=== PATIENT | male | born 1955 | race Two or more races ===

== ENCOUNTER 2022-01-15 09:24 | Emergency (ER) | payer MEDICARE, OTHER ==
[~2022-01-15] VITALS: Ht 180.3 cm; Wt 99.8 kg
[2022-01-15 09:40] VITALS: BP 123/91
--- NOTE | 2022-01-15 09:40 | NUR ---
BIBS C/O LEFT KNEE PAIN P/S 07/29 X2DAYS, DENIES TRAUMA. AWAITING MED EVAL.
[2022-01-15] MEDS ORDERED: NAPR-1192 PO (10:46)
--- NOTE | 2022-01-15 11:03 | NUR ---
Patient given written and verbal discharge instructions. Patient verbalizes understanding of instructions. Patient is ambulatory with steady gait. Refuses offer of intermediate placement. Patient given list of available shelters in surrounding area.
== END 2022-01-15 11:04 | disposition home or self-care (01) ==
LOC: ER 09:45
DX: S83.8X2A Sprain of other specified parts of left knee, initial encounter (principal); J45.909 Unspecified asthma, uncomplicated; M19.90 Unspecified osteoarthritis, unspecified site; Z88.0 Allergy status to penicillin; X50.1XXA Overexertion from prolonged static or awkward postures, initial encounter; Y93.89 Activity, other specified; Y92.89 Other specified places as the place of occurrence of the external cause; Y99.8 Other external cause status
CPT/HCPCS: 73564-TC

== ENCOUNTER 2022-01-24 09:34 | Emergency (ER) | payer MEDICARE, OTHER ==
[~2022-01-24] VITALS: Ht 180.3 cm; Wt 99.8 kg
[~2022-01-24 09:34] MED LIST: NAPR-1192 PO
[2022-01-24 09:36] VITALS: BP 131/93
--- NOTE | 2022-01-24 09:37 | NUR ---
BIBS W/ C/O EYE IRRITATION AFTER USING AEROSOL PAINT WITHOUT GOGGLES YESTERDAY; PT STATES HE TRIED USING OTC DROPS AND HAS MINIMAL RELIEF. TO ER BED 9.
[2022-01-24] MEDS ORDERED: FLUORESCEIN SODIUM OPHTH 1 EA STRIP ONE (09:42)
--- NOTE | 2022-01-24 09:50 | NUR ---
DR CERNA AT BEDSIDE FOR EVAL
[2022-01-24] MEDS ORDERED: GENT5DRO4 EACHEYE (09:53)
--- NOTE | 2022-01-24 09:57 | NUR ---
Patient discharged to home in stable condition. Written and verbal after care instructions given. Patient verbalizes understanding of instruction.
[2022-01-24] MEDS ORDERED: TETRACAINE HCL 0.5% OPHTALMIC 15 ML BOTTLE OP ONE (10:00)
[2022-01-24] MEDS ORDERED: FLUORESCEIN SODIUM OPHTH 1 EA STRIP OP ONE (10:00)
== END 2022-01-24 09:58 | disposition home or self-care (01) ==
LOC: ER 09:39
DX: H10.213 Acute toxic conjunctivitis, bilateral (principal); J45.909 Unspecified asthma, uncomplicated; M19.90 Unspecified osteoarthritis, unspecified site; Z88.0 Allergy status to penicillin

== ENCOUNTER 2022-09-28 03:40 | Emergency (ER) | payer MEDICARE, OTHER ==
[~2022-09-28] VITALS: Ht 177.8 cm; Wt 102.1 kg
[~2022-09-28 03:40] MED LIST changes: +GENT5DRO4 EACHEYE
[2022-09-28 04:41] VITALS: BP 141/85
--- NOTE | 2022-09-28 04:41 | NUR ---
BIBSELF C/O POSSIBLY DEHYDRATED. STATED C/O MUSCLE STIFFNESS. PT AAOX4, ABLE TO MAKE NEEDS KNOWN. PLACED COMFORTABLY IN BED, VITALS CHECKED.
[2022-09-28] MEDS ORDERED: ACETAMINOPHEN 325 MG TABLET ONE (05:28)
[2022-09-28] MEDS ORDERED: CYCLOBENZAPRINE 10 MG TABLET ONE (05:29)
--- NOTE | 2022-09-28 05:38 | NUR ---
COVID SWAB COLLECTED AND SENT TO LAB
[2022-09-28] MEDS: ACETAMINOPHEN 325 MG TABLET PO ONE (05:39)
[2022-09-28] MEDS: CYCLOBENZAPRINE 10 MG TABLET PO ONE (05:39)
--- NOTE | 2022-09-28 05:39 | NUR ---
URINE COLLECTED AND SENT TO LAB
[2022-09-28 05:58] LABS: BILIRUBIN,URINE NEGATIVE (NEGATIVE); COLOR,URINE YELLOW (YELLOW); LEUKOCYTE ESTERASE ,URINE NEGATIVE (NEGATIVE); NITRITE, URINE NEGATIVE (NEGATIVE); PROTEIN,URINE NEGATIVE (NEGATIVE); UGLUCOSE NEGATIVE (NEGATIVE); UROBILINOGEN,URINE 0.2 EU/dL (0.2)
[2022-09-28 06:00] LABS: CALCIUM, SERUM 8.9 mg/dL (8.5-10.1); CREATININE 0.8 mg/dL (0.6-1.3); POTASSIUM 4.3 mmol/L (3.5-5.1)
[2022-09-28 06:05] LABS: BASOPHILS # (AUTO) 0.1 K/uL (0.0-0.2); BASOPHILS % (AUTO) 0.9 % (0.0-2.0); EOSINOPHILS % (AUTO) 3.3 % (0.0-6.0); HEMATOCRIT 43 % (39-51); HEMOGLOBIN 14.1 g/dL (13.5-17.5); LYMPHOCYTES # (AUTO) 1.7 K/uL (0.8-4.8); LYMPHOCYTES % (AUTO) 26.9 % (20.0-44.0); MEAN CORPUSCULAR HGB CONC 33 g/dl (31.0-36.0); MEAN CORPUSCULAR VOLUME 90 fL (80-96); MONOCYTES # (AUTO) 0.6 K/uL (0.1-1.30); NEUTROPHILS # (AUTO) 3.6 K/uL (1.8-8.9); NEUTROPHILS % (AUTO) 58.9 % (43.0-81.0); PLATELET COUNT (AUTO) 188 K/uL (150-450); WHITE BLOOD COUNT (AUTO) 6.2 K/uL (4.3-11.0)
[2022-09-28 06:06] LABS: ALBUMIN 3.5 g/dL (3.4-5.0); BILIRUBIN,DIRECT 0.1 mg/dL (0.0-0.2); BILIRUBIN,TOTAL 0.5 mg/dL (0.2-1.0); TOTAL PROTEIN, SERUM 6.5 g/dL (6.4-8.2)
[2022-09-28] MEDS ORDERED: CYCL5TAB PO (06:07)
== END 2022-09-28 06:40 | disposition home or self-care (01) ==
LOC: ER 03:46
DX: R25.2 Cramp and spasm (principal); J45.909 Unspecified asthma, uncomplicated; M19.90 Unspecified osteoarthritis, unspecified site; Z20.822 Contact with and (suspected) exposure to COVID-19; Z88.0 Allergy status to penicillin
CPT/HCPCS: 36415; 80048-TC; 80076-TC; 85025-TC; C9803

== ENCOUNTER 2022-11-26 12:03 | Emergency (ER) | payer MEDICARE, OTHER ==
[~2022-11-26] VITALS: Ht 177.8 cm; Wt 102.1 kg
[~2022-11-26 12:03] MED LIST changes: +CYCL5TAB PO
[2022-11-26 12:16] VITALS: BP 129/84
--- NOTE | 2022-11-26 12:18 | NUR ---
PT WALKED INTO ER C/O COUGH AND CONGESTION X 1 MONTH. BREATHING EVEN AND UNLABORED. VITAL SIGNS WNL. AWAITING MD GONZALEZ.
--- NOTE | 2022-11-26 12:24 | NUR ---
AT BEDSIDE FOR EVAL
--- NOTE | 2022-11-26 12:29 | NUR ---
Patient discharged to home in stable condition. Written and verbal after care instructions given. Patient verbalizes understanding of instruction.
== END 2022-11-26 12:39 | disposition home or self-care (01) ==
LOC: ER 12:13
DX: J06.9 Acute upper respiratory infection, unspecified (principal); J45.909 Unspecified asthma, uncomplicated; M19.90 Unspecified osteoarthritis, unspecified site; Z88.0 Allergy status to penicillin; Z60.2 Problems related to living alone

== ENCOUNTER 2023-05-07 07:13 | Emergency (ER) | payer MEDICARE, OTHER ==
[~2023-05-07] VITALS: Ht 182.9 cm; Wt 108.0 kg
[2023-05-07] MEDS ORDERED: AZIT500T4 PO ×2 (08:49→08:59)
[2023-05-07 09:02] VITALS: BP 128/77; TEMP 98.1; O2SAT 97
== END 2023-05-07 09:03 | disposition home or self-care (01) ==
LOC: ER 07:19
DX: J45.909 Unspecified asthma, uncomplicated (principal); M19.90 Unspecified osteoarthritis, unspecified site; Z88.0 Allergy status to penicillin; Z60.2 Problems related to living alone; Z20.822 Contact with and (suspected) exposure to COVID-19
CPT/HCPCS: 99284; 71045; 87426; 87804 ×2; J7030; C9803

== ENCOUNTER 2025-02-20 05:03 | Emergency (ER) | payer OTHER ==
[~2025-02-20] VITALS: Ht 177.8 cm; Wt 104.3 kg
[~2025-02-20 05:03] MED LIST changes: +AZIT500T4 PO
[2025-02-20 06:08] LABS: PLATELET COUNT (AUTO) 168 K/uL (150-450); RED BLOOD CELL COUNT(AUTO) 4.99 MIL/uL (4.5-6.0); RED CELL DISTRIBUTION WIDTH 13.2 % (11.5-15.0); WHITE BLOOD COUNT (AUTO) 6.4 K/uL (4.3-11.0)
[2025-02-20 06:13] LABS: CALCIUM, SERUM 9.0 mg/dL (8.5-10.1); CREATININE 1.0 mg/dL (0.6-1.3); SODIUM SERUM 141.0 mmol/L (136-145); UREA NITROGEN, BLOOD 13.0 mg/dL (7-18)
[2025-02-20 06:18] LABS: APPEARANCE,URINE CLEAR (CLEAR); BLOOD, URINE TRACE-INTA Ery/uL (NEGATIVE); LEUKOCYTE ESTERASE ,URINE NEGATIVE (NEGATIVE); NITRITE, URINE NEGATIVE (NEGATIVE); UGLUCOSE NEGATIVE (NEGATIVE)
[2025-02-20 06:19] LABS: ASPARTATE AMINOTRANSFERASE 18.0 U/L (15-37); TOTAL PROTEIN, SERUM 7.0 g/dL (6.4-8.2)
[2025-02-20 06:28] VITALS: O2SAT 99
[2025-02-20 06:28] LABS: ADD URINE CULTURE NO; SQUAMOUS EPITHELIAL CELL,UR None Seen /HPF (None Seen)
[2025-02-20] MEDS: ALBUTEROL FS 2.5 MG/3 ML VIAL.NEB NEB ONE (06:28)
[2025-02-20] MEDS: IPRATROPIUM NEB FS 0.5 MG/2.5 ML AMPUL.NEB NEB ONE (06:28)
[2025-02-20] MEDS ORDERED: ALBUTEROL FS 2.5 MG/3 ML VIAL.NEB ONE (06:35)
[2025-02-20] MEDS ORDERED: IPRATROPIUM NEB FS 0.5 MG/2.5 ML AMPUL.NEB ONE (06:35)
[2025-02-20 06:38] VITALS: O2SAT 99
[2025-02-20 06:48] VITALS: O2SAT 100
[2025-02-20] MEDS ORDERED: PRED20TA PO (07:39)
[2025-02-20] MEDS ORDERED: ALBU8.5H8 INH (07:40)
[2025-02-20 07:53] VITALS: BP 107/75; TEMP 99.1; O2SAT 100
[2025-02-21 20:10] LABS: CHLAMYDIA TRACHOMATIS NAA Negative (Negative); NEISSERIA GONORRHOEAE NAA Negative (Negative)
== END 2025-02-20 07:54 | disposition home or self-care (01) ==
LOC: ER 05:07
DX: U07.1 COVID-19 (principal); N50.811 Right testicular pain; J45.909 Unspecified asthma, uncomplicated; M19.90 Unspecified osteoarthritis, unspecified site; Z88.0 Allergy status to penicillin
CPT/HCPCS: 99285; 71045; 87426; 87804 ×2; 76870; 85025; 81001; 36415; 80053; 94640; 87491; 87591; J7512